=== PATIENT | female | born 1990 | race Caucasian/White ===

== ENCOUNTER 2016-05-26 11:37 | Emergency (ER) | payer OTHER ==
[2016-05-26 11:44] VITALS: RESP 18; O2SAT 100
[2016-05-26 12:40] LABS: URINE BACTERIA RARE (<OCC); URINE BILIRUBIN NEGATIVE (NEGATIVE); URINE BLOOD 2+ (NEGATIVE); URINE COLOR Straw (YELLOW); URINE GLUCOSE (UA) NORMAL (Normal); URINE KETONE NEGATIVE (NEGATIVE); URINE LEUKOCYTE ESTERASE TRACE Leu/uL (Negative); URINE PROTEIN NEGATIVE (NEGATIVE); URINE UROBILINOGEN NORMAL mg/dL (0.2-1.0); WBC URINE 2 /hpf (0-5)
[2016-05-26 12:53] LABS: RBC URINE 3 /hpf (0-3)
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
[2016-05-26 13:30] VITALS: BP 113/69; PULSE 68; TEMP 98.4
== END 2016-05-26 13:32 | disposition home or self-care (01) ==
LOC: C.ER 11:37
DX: N92.6 Irregular menstruation, unspecified (principal)

== ENCOUNTER 2017-04-04 22:04 | Emergency (ER) | payer OTHER ==
[2017-04-04] MEDS ORDERED: Sodium Chloride 0.9% 1,000 ML IV ONE (23:11)
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
[2017-04-04] MEDS ORDERED: Sodium Chloride 0.9% 1,000 ML ONE (23:19)
[2017-04-04 23:35] LABS: BASO # 0.1 K/uL (0.0-0.2); BASO % 0.8 % (0.0-2.0); EOS # 0.3 K/uL (0.0-0.7); EOS % 2.8 % (0.0-4.0); HEMOGLOBIN 12.1 g/dL (11.0-16.0); LYMPH # 3.5 K/uL (1.0-4.3); MEAN CELL VOLUME 89.7 fL (81.0-99.0); MEAN CORPUSCULAR HEMOGLOBIN 30.2 pg (27.0-31.0); MEAN CORPUSCULAR HGB CONC 33.7 g/dL (33.0-37.0); MEAN PLATELET VOLUME 9.3 fL (7.2-11.7); MONO # 0.6 K/uL (0.0-0.8); MONO % 6.1 % (0.0-10.0); NEUT # 5.1 K/uL (1.8-7.0); NEUT % 53.3 % (50.0-75.0); RED CELL DISTRIBUTION WIDTH 13.6 % (11.5-14.5); WHITE BLOOD COUNT 9.5 K/uL (4.8-10.8)
[2017-04-04 23:36] LABS: HCG,QUALITATIVE URINE NEGATIVE (NEGATIVE)
[2017-04-04 23:38] LABS: SQUAMOUS EPITHIAL < 1 /hpf (0-5); URINE BILIRUBIN NEGATIVE (NEGATIVE); URINE BLOOD NEGATIVE (NEGATIVE); URINE CLARITY Clear (Clear); URINE COLOR Colorless (YELLOW); URINE GLUCOSE (UA) NORMAL (Normal); URINE LEUKOCYTE ESTERASE NEG Leu/uL (Negative); URINE NITRATE NEGATIVE (NEGATIVE); URINE PROTEIN NEGATIVE (NEGATIVE); URINE UROBILINOGEN NORMAL mg/dL (0.2-1.0)
[2017-04-04 23:47] LABS: ALB/GLOB RATIO 1.1 (1.0-2.1); ALBUMIN 4.6 g/dL (3.5-5.0); ALT/SGPT 25 U/L (9-52); AST/SGOT 17 U/L (14-36); BLOOD UREA NITROGEN 19 mg/dL (7-17); CALCIUM 9.3 mg/dl (8.6-10.4); GFR AFRICAN-AMERICAN > 60; GFR NON-AFRICAN AMERICAN > 60; LIPASE 86 U/L (23-300)
[2017-04-05 00:37] VITALS: BP 113/69; PULSE 77; RESP 20; TEMP 98.4; O2SAT 100
--- NOTE | 2017-04-05 09:15 | RAD ---
Abdomen four views History: Abdominal pain. Comparison: None available. Findings: No focal infiltrate or effusion. Bibasilar breast and nipple shadows. No evidence of gross bowel obstruction. Fecal retention in the right hemicolon. Impression: Fecal retention in the right hemicolon.
== END 2017-04-05 00:37 | disposition home or self-care (01) ==
LOC: C.ER 22:04
DX: R10.31 Right lower quadrant pain (principal)
CPT/HCPCS: 74022; 80053; 81001; 83690; 84703; 85025; 96361; 96374; 99284; J1885; J7040